=== PATIENT | male | born 1955 | race Two or more races ===

== ENCOUNTER 2023-09-21 01:32 | Inpatient (IN) | payer OTHER ==
[2023-09-21] VITALS (13 sets, daily range): BP systolic 94–196; BP diastolic 60–112; PULSE 70–161; RESP 19–30; TEMP 97.4; O2SAT 90–97
[~2023-09-21] VITALS: Ht 188 cm; Wt 73.0 kg
[2023-09-21 02:00] LABS: Eosinophils # (auto) 0.4 10 ^3/uL (0-0.8); Eosinophils % (auto) 3.4 % (0.0-7.0); Monocytes # (auto) 1.8 10 ^3/uL (0-1.3); Monocytes % (auto) 13.8 % (0.0-12.0); Neutrophils # (auto) 6.7 10 ^3/uL (1.6-8.6); White Blood Cell 12.8 10^3/uL (4.4-10.8)
[2023-09-21 02:02] LABS: Basophils # (auto) 0.3 10 ^3/uL (0-0.2); Basophils % (auto) 2.6 % (0.0-2.0); Hematocrit 24.3 % (41.0-53.0); Lymphocytes # (auto) 3.5 10 ^3/uL (0.4-5.4); Lymphocytes % (auto) 27.7 % (10.0-50.0); Mean Corpuscular Hemoglobin 31.6 pg (28.0-32.0); Mean Corpuscular Hgb Conc. 33.1 g/dL (32.0-36.0); Mean Corpuscular Volume 95.7 fL (80.0-100.0); Neutrophils % (auto) 52.5 % (37.0-80.0); Red Blood Cells 2.54 10^6/uL (4.5-5.90); Red Cell Distribution Width 18.1 % (11.8-14.3)
[2023-09-21] MEDS: NITROGLYCERIN 0.4 MG SL TAB SL ONE ×2 (02:03→02:04)
[2023-09-21] MEDS: FUROSEMIDE 40 MG/4 ML VIAL IV ONE ×2 (02:12→03:20)
[2023-09-21] MEDS: hydrALAZINE HCL 20 MG/ML VL IV ONE (02:12)
[2023-09-21 02:20] LABS: Base Excess -7.4 mmol/L (-2.0-2.0)
[2023-09-21 02:54] LABS: Chloride 101 mmol/L (98-107); Sodium 133 mmol/L (136-145)
[2023-09-21 02:55] LABS: Anion Gap 14 (5-15); Calcium 8.5 mg/dL (8.7-10.4); Carbon Dioxide 18 mmol/L (20-30)
[2023-09-21 03:00] LABS: BUN/Creatinine Ratio 7.5 (10.0-20.0); Glucose 139 mg/dL (74-106)
[2023-09-21 03:10] LABS: Blood Urea Nitrogen 81 mg/dL (9-23)
[2023-09-21 06:37] LABS: Urine Bacteria None Seen /hpf (None Seen)
[2023-09-21] MEDS: LORazepam 2MG/ML-1ML VIAL IV ONE (06:45)
[2023-09-21 06:56] LABS: Urine Blood TRACE /uL (Negative); Urine Clarity Clear (Clear); Urine Protein, UAD 1+ (Negative); Urine Specific Gravity 1.007 (1.001-1.035); Urine Urobilinogen Normal (Negative); Urine WBC <1 /hpf (0 - 3); Urine pH 7.5 (5.0-9.0)
[2023-09-21 07:03] LABS: Urine Color Straw (Yellow)
[2023-09-21] MEDS: LORazepam 2MG/ML-1ML VIAL ONE (07:15)
[2023-09-21] MEDS ORDERED: NITROGLYCERIN 0.4 MG SL TAB SL PRN (07:15)
[2023-09-21] MEDS ORDERED: ALBUTEROL SULF 2.5 MG/0.5ML(0.5%) NEB SOLN NEB PRN (07:30)
[2023-09-21] MEDS: ENOXAPARIN SOD 100 MG/1 ML SYRINGE SC ONE (07:57)
[2023-09-21] MEDS: dilTIAZem 25 MG/5 ML VIAL IV ONE (07:57)
[2023-09-21 09:38] LABS: Base Excess -6.2 mmol/L (-2.0-2.0)
[2023-09-21] MEDS: cefTRIAXone 1GM/50ML D5W 50 ML IV SCH (10:03)
[2023-09-21] MEDS: ASPirin 81 mg TAB PO SCH (10:09)
[2023-09-21] MEDS: NIFEdipine ER 30 MG TAB PO SCH (10:10)
[2023-09-21] MEDS: amLODIPine BESYLATE 5 MG TAB PO SCH (10:10)
[2023-09-21] MEDS: CARVEDILOL 12.5 MG TAB PO SCH (10:11)
[2023-09-21] MEDS: AZITHROMYCIN 500MG/ 250ML 250 ML IV SCH (10:11)
[2023-09-21] MEDS: ONDANSETRON HCL 4 MG/2 ML VIAL IV PRN (10:28)
[2023-09-21] MEDS: MORPHINE SULFATE INJ 2 MG/ml SYRG IV PRN ×2 (10:29→16:42)
[2023-09-21] MEDS: BUMETANIDE 2.5mg/10ml (0.25 mg/ml) INJ IV ONE (11:12)
[2023-09-21] MEDS: hydrALAZINE HCL 25 MG TAB PO SCH (12:00)
[2023-09-21] MEDS ORDERED: LABETALOL HCL 5 MG/ML ML 20ML VIAL IV PRN (17:15)
[2023-09-22] VITALS (7 sets, daily range): BP systolic 102–121; BP diastolic 57–65; PULSE 68–99; RESP 16–20; TEMP 97.9–98.2; O2SAT 95–97
[2023-09-22 03:30] LABS: Eosinophils # (auto) 0 10 ^3/uL (0-0.8); Eosinophils % (auto) 0.1 % (0.0-7.0); Hematocrit 23.6 % (41.0-53.0); Monocytes # (auto) 0.9 10 ^3/uL (0-1.3); Nucleated Red Blood Cells % 0.1 %; White Blood Cell 7.6 10^3/uL (4.4-10.8)
[2023-09-22 03:32] LABS: Basophils # (auto) 0 10 ^3/uL (0-0.2); Basophils % (auto) 0.5 % (0.0-2.0); Hemoglobin 7.8 g/dL (13.5-17.5); Lymphocytes # (auto) 1.7 10 ^3/uL (0.4-5.4); Lymphocytes % (auto) 22.5 % (10.0-50.0); Mean Corpuscular Hemoglobin 30.7 pg (28.0-32.0); Mean Corpuscular Volume 92.9 fL (80.0-100.0); Monocytes % (auto) 11.2 % (0.0-12.0); Neutrophils % (auto) 65.7 % (37.0-80.0); Red Blood Cells 2.54 10^6/uL (4.5-5.90); Red Cell Distribution Width 17.5 % (11.8-14.3)
[2023-09-22 04:05] LABS: Alanine Aminotransferase 10 U/L (7-40); Albumin 2.9 g/dL (3.2-4.8); Alkaline Phosphatase 116 U/L (46-116); Anion Gap 17 (5-15); Aspartate Aminotransferase 15 U/L (13-40); BUN/Creatinine Ratio 7.6 (10.0-20.0); Bilirubin, Total 0.2 mg/dL (0.2-1.0); Blood Urea Nitrogen 75 mg/dL (9-23); Calcium 8.6 mg/dL (8.7-10.4); Carbon Dioxide 19 mmol/L (20-30); Chloride 98 mmol/L (98-107); Glucose 95 mg/dL (74-106); Potassium 4.1 mmol/L (3.5-5.1); Sodium 134 mmol/L (136-145); Total Protein 10.3 g/dL (5.7-8.2)
[2023-09-22 09:42] LABS: Hepatitis B Surface Antibody Negative (Negative)
[2023-09-22 09:54] LABS: Hepatitis B Surface Antigen Negative (Negative)
[2023-09-22] MEDS ORDERED: SENN-177 PO (15:03)
[2023-09-22] MEDS ORDERED: NIFE90TA75 PO (15:03)
[2023-09-22] MEDS ORDERED: HYDR50TA47 PO (15:03)
[2023-09-22] MEDS ORDERED: CHOL1TAB30 PO (15:03)
[2023-09-22] MEDS ORDERED: AMLO1TAB23 PO (15:03)
[2023-09-22] MEDS ORDERED: CARV12.544 PO (15:03)
[2023-09-23] VITALS (11 sets, daily range): BP systolic 109–140; BP diastolic 58–78; PULSE 59–75; RESP 16–18; TEMP 97.6–98.2; O2SAT 90–100
[2023-09-23 07:08] LABS: Hematocrit 20.5 % (41.0-53.0)
[2023-09-23 07:14] LABS: Anion Gap 11 (5-15); Calcium 8.5 mg/dL (8.5-10.1); Carbon Dioxide 24 mmol/L (20-30); Chloride 99 mmol/L (98-107); Potassium 4.4 mmol/L (3.5-5.1); Sodium 134 mmol/L (136-145)
[2023-09-23 07:20] LABS: BUN/Creatinine Ratio 8.8 (10.0-20.0); Blood Urea Nitrogen 72 mg/dL (9-23); Glucose 88 mg/dL (74-106); Hemoglobin 6.9 g/dL (13.5-17.5)
[2023-09-23] MEDS ORDERED: DOXY-448 PO (12:10)
[2023-09-24] VITALS (7 sets, daily range): BP systolic 100–138; BP diastolic 63–79; PULSE 64–71; RESP 18–20; TEMP 97.4–98.2; O2SAT 90–98
[2023-09-25] VITALS (7 sets, daily range): BP systolic 115–154; BP diastolic 57–84; PULSE 57–68; RESP 16–20; TEMP 97.8–98.3; O2SAT 96–99
[2023-09-25] MEDS ORDERED: SODIUM CHL 0.9% 1000 ML BAG XX ONE (08:15)
[2023-09-25 19:05] LABS: Basophils # (auto) 0.1 10 ^3/uL (0-0.2); Basophils % (auto) 1.1 % (0.0-2.0); Hemoglobin 8.4 g/dL (13.5-17.5); Lymphocytes # (auto) 1.9 10 ^3/uL (0.4-5.4); Monocytes # (auto) 1.1 10 ^3/uL (0-1.3); Neutrophils # (auto) 5.1 10 ^3/uL (1.6-8.6)
[2023-09-25 19:07] LABS: Eosinophils # (auto) 0.1 10 ^3/uL (0-0.8); Eosinophils % (auto) 1.7 % (0.0-7.0); Hematocrit 24.7 % (41.0-53.0); Lymphocytes % (auto) 23.1 % (10.0-50.0); Mean Corpuscular Volume 91.3 fL (80.0-100.0); Monocytes % (auto) 12.8 % (0.0-12.0); Neutrophils % (auto) 61.3 % (37.0-80.0); Red Blood Cells 2.71 10^6/uL (4.5-5.90); Red Cell Distribution Width 16.9 % (11.8-14.3); White Blood Cell 8.4 10^3/uL (4.4-10.8)
[2023-09-26 01:00] VITALS: BP 132/76; PULSE 62; RESP 18; TEMP 98.3; O2SAT 98
[2023-09-26 05:00] VITALS: BP 143/71; PULSE 60; RESP 18; TEMP 97.4; O2SAT 100
[2023-09-26 08:00] VITALS: PULSE 57
[2023-09-26 09:00] VITALS: BP 136/70; PULSE 59; RESP 15; TEMP 97.6; O2SAT 99
[2023-09-26 13:00] VITALS: BP 113/67; PULSE 59; RESP 15; TEMP 98.2; O2SAT 100
== END 2023-09-26 15:05 | disposition home or self-care (01) | DRG 871 ==
LOC: ER 01:32 → EDBD 01:32 → TELE 07:09 → TELE-E-ADS 09-22 11:24 → TELE-EAST 09-24 10:00
PROVIDERS: ADMIT Nurse Practitioner; ATTEND Nurse Practitioner Acute Care
PROC: 5A1D70Z Performance of Urinary Filtration, Intermittent, Less than 6 Hours Per Day (ICD-10-PCS; 2023-09-21)
PROC: 5A09357 Assistance with Respiratory Ventilation, Less than 24 Consecutive Hours, Continuous Positive Airway Pressure (ICD-10-PCS; 2023-09-21)
PROC: 5A1D70Z Performance of Urinary Filtration, Intermittent, Less than 6 Hours Per Day (ICD-10-PCS; 2023-09-22)
PROC: 30233N1 Transfusion of Nonautologous Red Blood Cells into Peripheral Vein, Percutaneous Approach (ICD-10-PCS; principal; 2023-09-23)
PROC: 5A1D70Z Performance of Urinary Filtration, Intermittent, Less than 6 Hours Per Day (ICD-10-PCS; 2023-09-24)
PROC: 5A1D70Z Performance of Urinary Filtration, Intermittent, Less than 6 Hours Per Day (ICD-10-PCS; 2023-09-25)
DX: A41.9 Sepsis, unspecified organism (principal); I21.A1 Myocardial infarction type 2; J96.21 Acute and chronic respiratory failure with hypoxia; I50.33 Acute on chronic diastolic (congestive) heart failure; J18.9 Pneumonia, unspecified organism; N18.6 End stage renal disease; I13.2 Hypertensive heart and chronic kidney disease with heart failure and with stage 5 chronic kidney disease, or end stage renal disease; C90.00 Multiple myeloma not having achieved remission; I16.9 Hypertensive crisis, unspecified; D63.1 Anemia in chronic kidney disease; Z99.2 Dependence on renal dialysis; Z51.11 Encounter for antineoplastic chemotherapy
CPT/HCPCS: 36415; 36600; 71045; 80048; 80053; 81001; 82805; 83605; 83880; 84484; 85014; 85018; 85025; 86706; 86850; 86900; 86901; 86920; 87040; 87086; 87340; 90935; 93005; 93306; 94660; 96374; 96375; 96376; 99291; G0378; J1642; J2405